=== PATIENT | male | born 1960 | race Caucasian/White ===

== ENCOUNTER 2019-08-25 18:35 | Emergency (ER) | payer MEDICARE, SELFPAY ==
[2019-08-25 18:37] VITALS: BP 103/69; PULSE 97; RESP 15; TEMP 36.4; O2SAT 96; BMI 28.1
--- NOTE | 2019-08-25 18:46 | XRR_ITS ---
PROCEDURE INFORMATION: Exam: XR Chest, 1 View Exam date and time: 08/25/2019 7:29 PM Age: 58 years old Clinical indication: Right-sided chest pain; Additional info: Cp TECHNIQUE: Imaging protocol: XR of the chest Views: 1 view. COMPARISON: No relevant prior studies available. FINDINGS: Lungs: Unremarkable. No consolidation. Pleural space: Right pleural fluid collection. Heart/Mediastinum: Unremarkable. No cardiomegaly. Bones/joints: Postoperative changes over the cervical spine. XR/XR chest 1V portable [id number] IMPRESSION: Right pleural fluid collection.
--- NOTE | 2019-08-25 18:46 | ECG_ITS ---
Measurements Intervals [place] Rate: 83 P: 41 CA: 132 QRS: 55 QRSD: 86 T: 65 QT: 321 QTc: 379 SINUS RHYTHM WITH SINUS ARRHYTHMIA No previous ECG available for comparison Electronically Signed On 08-26-2019 20:56:10 CDT by Sarai Paz M.D. [email or web address]
--- NOTE | 2019-08-25 18:46 | PC.NURSE ---
EKG done at 1844 and shown to ER doctor
[2019-08-25 19:09] LABS: Basophils # 0.1 10^3/uL (0.0-0.1); Basophils % 0.7 %; Eosinophils % 10.4 %; Hematocrit 50.6 % (42.0-52.0); Hemoglobin 16.3 g/dL (11.7-16.6); Lymphocytes # 2.3 10^3/uL (0.8-4.8); Lymphocytes % 24.8 %; Mean Corpuscular HGB Conc 32.2 g/dL (30.0-36.0); Mean Corpuscular Volume 96.2 fL (80-94); Mean Platelet Volume 8.5 fL (7.4-10.4); Monocytes # 0.8 10^3/uL (0.2-0.9); Monocytes % 8.2 %; Neutrophils # 5.1 10^3/uL (1.8-7.7); Neutrophils % 55.4 %; Nucleated Red Blood Cells % 0 %; Platelet Count 355 10^3/cmm (130-400); Red Blood Count 5.26 10^6/uL (4.1-5.3); Red Cell Distribution Width 12.6 % (12.1-15.1); White Blood Count 9.2 10^3/uL (4.0-10.0)
[2019-08-25 19:22] LABS: Partial Thromboplastin Time 27.7 SECONDS (23.9-36.7)
[2019-08-25 19:28] LABS: Alanine Aminotransferase 21 U/L (0-41); Albumin Level 3.4 g/dL (3.5-5.2); Alkaline Phosphatase 114 IU/L (40-130); Anion Gap 15.4 (5-19); Blood Urea Nitrogen 13 mg/dL (6-20); Carbon Dioxide 27 mmol/L (22-29); Chloride 102 mmol/L (98-107); Creatine Phosphokinase 50 U/L (39-308); Creatinine Clr Calc Pharmacy 84.3719; Globulin 4.1 g/dL (1.3-4.6); Glomerular Filtration Rate 77.3 mL/min (90-130); Glucose 105 mg/dL (65-115); Osmolality Calculated 287 mOsm/kg (285-295); Potassium 4.4 mmol/L (3.5-5.1); Sodium 140 mmol/L (136-145); Total Bilirubin 0.2 mg/dL (0.15-1.2); Total Protein 7.5 g/dL (6.6-8.7)
[2019-08-25 19:29] LABS: Troponin(5th) Baseline 7 ng/L (0-15)
[2019-08-25 19:35] LABS: Aspartate Amino Transferase 20 U/L (0-40)
[2019-08-25 19:47] VITALS: BP 142/78; PULSE 88; RESP 18; O2SAT 97
--- NOTE | 2019-08-26 03:12 | W.ED.CHESTPA ---
HPI - Chest Pain General: Chief Complaint: Chest Pain Stated Complaint: CHEST PAIN Time Seen by Provider: 08/25/19 18:39 History of Present Illness: HPI narrative: 58-year-old male arrives by ambulance. He complained of chest pain at home that was worse today. He has been having pain essentially for the last 3 days or so. The pain started 3 days ago when he was working on something at home. He short of breath with the pain. He states he has been coughing. No swelling no history of heart disease. He does have a history of a pneumothorax after traumatic injury a year ago or so. MD complaint: chest pain Onset (ago): day(s) (3) Timing of current episode: constant Prior episodes: Yes Onset: during rest Pain location: substernal Pain radiation: none Severity: moderate Quality: tightness and aching Relieving factors: nitroglycerin Associated symptoms: Reports dyspnea; Deny fever(s), leg edema, nausea, palpitations or vomiting Treatment prior to arrival: aspirin and nitroglycerin Review of Systems Const: Denies: fever(s) Eyes: Denies: change in vision or blurry vision ENMT: Denies: swelling of lips/tongue, epistaxis, post nasal drip or sinus pain Card: Reports: chest pain and dyspnea on exertion; Denies: palpitations, irregular heart rhythm, edema, swelling of feet/ankles or orthopnea Resp: Reports: dyspnea GI: Denies: nausea or vomiting : Denies: difficulty urinating or dysuria Musc: Denies: neck pain or back pain Skin/Breast: Denies: rash, pruritus or erythema Neuro: Reports: dizziness; Denies: headache(s) or vertigo Psych: Reports: anxiety; Denies: visual hallucinations PFSH ED PFSH: Social History Smoking and tobacco status: smoker, details unknown Physical Exam Const: GENERAL APPEARANCE: well developed ORIENTATION/CONSCIOUSNESS: Yes oriented to person, Yes oriented to place and Yes oriented to time HENMT: COMMON NORMALS: normocephalic, external ears normal and Normal external nose present HEAD & SCALP: normocephalic FACE & SINUS: normal facial exam NOSE: Normal external nose present and No nasal discharge present EXTERNAL EAR: Yes external ears normal MOUTH: tongue normal Eye: COMMON NORMALS: Equal, round and reactive pupils present, EOMs intact bilaterally and conjunctivae normal EYELID: eyelids normal CONJUNCTIVA: Yes conjunctivae normal PUPIL: Yes Equal, round and reactive pupils present Neck/C-Spine: GENERAL: No tracheal deviation Chest: COMMONS NORMALS: normal inspection of the chest CHEST: No tenderness Resp: COMMON NORMALS: clear to auscultation bilaterally EFFORT & INSPECTION: No tachypneic, No respiratory distress, No retractions, No uses accessory muscles and No tracheal deviation AUSCULTATION: clear to auscultation bilaterally, no rhonchi, no wheezes and lung sounds not diminished Cardio: COMMON NORMALS: regular rate and regular rhythm RATE: regular rate RHYTHM: regular rhythm HEART SOUNDS: no murmurs PERIPHERAL PULSES: radial pulses present GI: INSPECTION: No abdominal distension AUSCULTATION: No Hyperactive bowel sounds present and No Hypoactive bowel sounds present PALPATION: No Guarding due to palpation present (GI) and No Rigid due to palpation PERCUSSION: no dullness to percussion and no tympanic to percussion Neuro: SENSORIUM/ORIENTATION: Yes oriented to person, Yes oriented to place and Yes oriented to time Psych: COMMON NORMALS: mental status grossly normal Skin: COMMON NORMALS: no rashes or lesions noted GENERAL SKIN EXAM: no rashes or lesions noted Course Vital Signs: Vital signs: Vital Signs Temperature 97.5 F L 08/25/19 18:37 Pulse Rate 88 08/25/19 19:47 Respiratory Rate 18 08/25/19 19:47 Blood Pressure 142/78 08/25/19 19:47 Pulse Oximetry 97 08/25/19 19:47 MDM - Chest Pain MDM Narrative: Medical decision making narrative: 58-year-old male with no prior history of coronary disease. Chest pain was relieved by nitroglycerin. His blood pressure sank upon getting the nitroglycerin. He was initially hypertensive. His EKG is normal with no acute ST change. His first troponin is 9. His chest x-ray showed a pleural effusion on the right, unknown if this is chronic following his lung injury that was a right-sided injury within the last year. The patient during his ER stay became very anxious, and worried about his girlfriend because he could not get a hold of her. He stated that he was leaving. We try to convince him to stay given the risks of his presenting symptoms, but he refused. He signed an AMA form. Lab Data: Labs: Lab Results [id number] 08/25/19 Range/Units 19:00 19:00 19:00 WBC 9.2 (4.0-10.0) 10^3/ uL RBC 5.26 (4.1-5.3) 10^6/u L Hgb 16.3 (11.7-16.6) g/dL Hct 50.6 (42.0-52.0) % MCV 96.2 H (80-94) fL MCH 31.0 (28.0-34.0) pg MCHC 32.2 (30.0-36.0) g/dL RDW 12.6 (12.1-15.1) % Plt Count 355 (130-400) 10^3/c mm MPV 8.5 (7.4-10.4) fL Neut % (Auto) 55.4 % Lymph % (Auto) 24.8 % Martin % (Auto) 8.2 % Eos % (Auto) 10.4 % Baso % (Auto) 0.7 % Neut # (Auto) 5.1 (1.8-7.7) 10^3/u L Lymph # (Auto) 2.3 (0.8-4.8) 10^3/u L Martin # (Auto) 0.8 (0.2-0.9) 10^3/u L Eos # (Auto) 1.0 H (0.0-0.8) 10^3/u L Baso # (Auto) 0.1 (0.0-0.1) 10^3/u L Nucleated RBC % (a uto) 0 % Nucleated RBCs # 0.0 /100WBC PT 12.40 (10.5-13.3) SECO NDS INR 0.90 (0.8-1.2) APTT 27.7 (23.9-36.7) SECO NDS Sodium 140 (136-145) mmol/L Potassium 4.4 (3.5-5.1) mmol/L Chloride 102 (98-107) mmol/L Carbon Dioxide 27 (22-29) mmol/L Anion Gap 15.4 (5-19) BUN 13 (6-20) mg/dL Creatinine 1.0 (0.7-1.2) mg/dL GFR Calculation 77.3 L (90-130) mL/min Glucose 105 (65-115) mg/dL Calculated Osmolal ity 287 (285-295) mOsm/k g Calcium 9.0 (8.5-10.5) mg/dL Total Bilirubin 0.2 (0.15-1.2) mg/dL AST 20 (0-40) U/L ALT 21 (0-41) U/L Alkaline Phosphata se 114 (40-130) IU/L Creatine Kinase 50 (39-308) U/L Troponin T Baselin e (0-15) ng/L Total Protein 7.5 (6.6-8.7) g/dL Albumin 3.4 L (3.5-5.2) g/dL Globulin 4.1 (1.3-4.6) g/dL 08/25/19 Range/Units 19:00 WBC (4.0-10.0) 10^3/ uL RBC (4.1-5.3) 10^6/u L Hgb (11.7-16.6) g/dL Hct (42.0-52.0) % MCV (80-94) fL MCH (28.0-34.0) pg MCHC (30.0-36.0) g/dL RDW (12.1-15.1) % Plt Count (130-400) 10^3/c mm MPV (7.4-10.4) fL Neut % (Auto) % Lymph % (Auto) % Martin % (Auto) % Eos % (Auto) % Baso % (Auto) % Neut # (Auto) (1.8-7.7) 10^3/u L Lymph # (Auto) (0.8-4.8) 10^3/u L Martin # (Auto) (0.2-0.9) 10^3/u L Eos # (Auto) (0.0-0.8) 10^3/u L Baso # (Auto) (0.0-0.1) 10^3/u L Nucleated RBC % (a uto) % Nucleated RBCs # /100WBC PT (10.5-13.3) SECO NDS INR (0.8-1.2) APTT (23.9-36.7) SECO NDS Sodium (136-145) mmol/L Potassium (3.5-5.1) mmol/L Chloride (98-107) mmol/L Carbon Dioxide (22-29) mmol/L Anion Gap (5-19) BUN (6-20) mg/dL Creatinine (0.7-1.2) mg/dL GFR Calculation (90-130) mL/min Glucose (65-115) mg/dL Calculated Osmolal ity (285-295) mOsm/k g Calcium (8.5-10.5) mg/dL Total Bilirubin (0.15-1.2) mg/dL AST (0-40) U/L ALT (0-41) U/L Alkaline Phosphata se (40-130) IU/L Creatine Kinase (39-308) U/L Troponin T Baselin e 7 (0-15) ng/L Total Protein (6.6-8.7) g/dL Albumin (3.5-5.2) g/dL Globulin (1.3-4.6) g/dL Discharge Plan Discharge Patient Disposition: Left Against Medical Advice Clinical Impression: Chest pain Qualifiers: Chest pain type: unspecified Qualified Code(s): R07.9 - Chest pain, unspecified Condition: Stable Prescriptions: No Action metaxalone [Skelaxin] 800 mg tablet 800 mg PO TID PRNRF: 0 tramadol 50 mg tablet 50 mg PO Q6H PRNRF: 0 Discharge Date/Time: 08/25/19 19:49 Coding Level of Care Code ED [place] for [facility] Fwd Exam Comprehensive
== END 2019-08-25 19:49 | disposition left against medical advice (07) ==
LOC: ER 18:57
PROVIDERS: Emergency Provider Emergency Medicine
DX: R07.9 Chest pain, unspecified (principal); Z53.21 Procedure and treatment not carried out due to patient leaving prior to being seen by health care provider; F17.210 Nicotine dependence, cigarettes, uncomplicated
CPT/HCPCS: 12345; 71045; 80053; 82550; 84484; 85025; 85610; 85730; 93005; 99283; 99284

== ENCOUNTER 2019-09-14 16:53 | Emergency (ER) | payer MEDICARE, SELFPAY ==
[2019-09-14 17:07] VITALS: BP 120/71; PULSE 75; RESP 20; TEMP 37.4; O2SAT 95; BMI 28.1
--- NOTE | 2019-09-14 17:12 | CTR_ITS ---
PROCEDURE INFORMATION: Exam: CT Abdomen And Pelvis With Contrast Exam date and time: 09/14/2019 5:43 PM Age: 58 years old Clinical indication: Abdominal pain; Localized; Left lower quadrant (llq); Prior surgery; Surgery date: 6+ months; Surgery type: Back, hernia; Patient HX: C/O sudden onset llq/testicular pain; Additional info: Abd pain TECHNIQUE: Imaging protocol: Computed tomography of the abdomen and pelvis with intravenous contrast. Radiation optimization: All CT scans at this facility use at least one of these dose optimization techniques: automated exposure control; mA and/or kV adjustment per patient size (includes targeted exams where dose is matched to clinical indication); or iterative reconstruction. Contrast material: OMNI 300; Contrast volume: 95 ml; Contrast route: INTRAVENOUS (IV); COMPARISON: CT abdomen pelvis w con* [id number] 09/29/2018 1:21 PM RADIATION DOSE METRICS: Total DLP (mGy-cm): 749.61 FINDINGS: Lungs: Mild bibasilar atelectasis and/or infiltrate and/or scarring. Pleural space: Small right pleural fluid collection. Liver: Normal. No mass. Gallbladder and bile ducts: Normal. No calcified stones. No ductal dilation. Pancreas: Normal. No ductal dilation. Spleen: Normal. No splenomegaly. Adrenals: Normal. No mass. Kidneys and ureters: Normal-variant horseshoe kidney. One or more nonobstructing right renal calyceal stones. Mild inflammation surrounding the left kidney secondary to left UPJ stone. 3 mm left UPJ stone with mild left hydronephrosis. Stomach and bowel: Moderate diverticulosis. Appendix: Normal appendix. Intraperitoneal space: Unremarkable. No free air. No significant fluid collection. Vasculature: Unremarkable. No abdominal aortic aneurysm. Lymph nodes: Unremarkable. No enlarged lymph nodes. Bladder: Unremarkable as visualized. Reproductive: Possible bilateral vasectomy in the past with surgical clips. Bones/joints: Unremarkable. No acute fracture. Soft tissues: Unremarkable. CT/CT abdomen pelvis w con* [id number] IMPRESSION: 1. Small right pleural fluid collection. 2. Normal-variant horseshoe kidney. 3. Mild inflammation surrounding the left kidney secondary to left UPJ stone. 3 mm left UPJ stone with mild left hydronephrosis. Radiation Dose CTDIVOL = (mGy): DLP = 749.61 (mGy-cm)
--- NOTE | 2019-09-14 17:13 | W.ED.ABDPA2 ---
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 He has had a left inguinal hernia repair in the past he states his left testicle feels swollen and inflamed he has a fullness and pain along the inguinal canal he feels very nauseous but is not actually had any vomiting. Patient wants to remain very still he does not want to move at all during the course of the history exam he says any movement worsens it. He denies fevers or chills denies dysuria urgency or frequency he states up until now his bowels and bladder have been normal recently has not had any respiratory illnesses lately recently has not been around anyone who is known to be covid19 positive. MD elicited complaint: abdominal pain Onset (ago): hour(s) Pain Consistency: constant Location: Groin (Left) and Other (Left testicle) Severity: severe Quality: cramping Radiation: other (Radiates from the testicle into the groin) Exacerbating factors: movement Relieving factors: rest Context: other (Previous left inguinal hernia repair) Associated Symptoms: Denies bloating, chills, coffee ground emesis, constipation, diarrhea, dysuria, fever(s), hematochezia, hematemesis, melena, nausea and vomiting Review of Systems Const: Denies: fever(s), chills, body aches, change in appetite, fatigue or malaise ENMT: Denies: throat pain, ear or mastoid pain, nasal discharge or nasal congestion Card: Denies: chest pain, edema, dyspnea on exertion or orthopnea Resp: Denies: dyspnea, productive cough or non-productive cough GI: Denies: abdominal pain, nausea, vomiting, hematemesis, coffee ground emesis, diarrhea, constipation, bloating, hematochezia or melena : Denies: flank pain, dysuria, urinary frequency or urinary urgency Skin/Breast: Denies: rash or pruritus PFSH ED PFSH: Medical History (Updated 09/14/19 @ 22:34 by José Luis Simon DO) Cervical radiculopathy No significant past medical history Surgical History (Updated 09/14/19 @ 17:16 by Artem Robles DO) History of ankle surgery History of back surgery History of knee surgery History of neck surgery Social History Smoking and tobacco status: smoker, details unknown Physical Exam Const: COMMON NORMALS: no acute distress GENERAL APPEARANCE: cooperative and comfortable ORIENTATION/CONSCIOUSNESS: Yes awake, Yes oriented to person, Yes oriented to place and Yes oriented to time Eye: COMMON NORMALS: Equal, round and reactive pupils present, EOMs intact bilaterally, conjunctivae normal and no scleral icterus CONJUNCTIVA: Yes conjunctivae normal PUPIL: Yes Equal, round and reactive pupils present Neck/C-Spine: COMMON NORMALS: full ROM, no lymphadenopathy and supple Lymph: LYMPHATIC: no lymphadenopathy noted and no lymphedema noted Resp: COMMON NORMALS: normal respiratory effort, No retractions, No use of accessory muscles and clear to auscultation bilaterally AUSCULTATION: clear to auscultation bilaterally Cardio: COMMON NORMALS: regular rhythm and No murmurs present (Cardio) RATE: tachycardic RHYTHM: regular rhythm GI: PALPATION: Yes Tenderness to palpation present (GI) (Diffuse abdominal tenderness) OTHER: Severe tenderness along the left inguinal canal : TESTES: No testicular swelling and Yes testicular tenderness Testicular tenderness laterality: left Extremity: COMMON NORMALS: normal to inspection, capillary refill normal, no clubbing, cyanosis or edema, no calf tenderness and no pedal edema Neuro: SENSORIUM/ORIENTATION: Yes oriented to person, Yes oriented to place and Yes oriented to time Skin: COMMON NORMALS: no rashes or lesions noted GENERAL SKIN EXAM: no rashes or lesions noted Course Vital Signs: Vital signs: Vital Signs Temperature 99.4 F 09/14/19 17:07 Pulse Rate 80 09/14/19 23:04 Respiratory Rate 17 09/14/19 23:04 Blood Pressure 130/77 09/14/19 23:04 Pulse Oximetry 99 09/14/19 23:04 MDM - Abdominal Pain MDM Narrative: Medical decision making narrative: Care turned over to Dr. Simon at change of shift. Does see his notes for final diagnosis and disposition. CT pending at time of change of shift Lab Data: Labs: Lab Results 09/14/19 09/14/19 09/14/19 Range/Units 17:31 17:31 17:31 WBC 11.2 H (4.0-10.0) 10^3/ uL RBC 4.86 (4.1-5.3) 10^6/u L Hgb 14.9 (11.7-16.6) g/dL Hct 44.9 (42.0-52.0) % MCV 92.4 (80-94) fL MCH 30.7 (28.0-34.0) pg MCHC 33.2 (30.0-36.0) g/dL RDW 12.2 (12.1-15.1) % Plt Count 321 (130-400) 10^3/c mm MPV 8.7 (7.4-10.4) fL Neut % (Auto) 80.2 % Lymph % (Auto) 10.9 % Newberry % (Auto) 5.1 % Eos % (Auto) 3.1 % Baso % (Auto) 0.4 % Neut # (Auto) 9.0 H (1.8-7.7) 10^3/u L Lymph # (Auto) 1.2 (0.8-4.8) 10^3/u L Newberry # (Auto) 0.6 (0.2-0.9) 10^3/u L Eos # (Auto) 0.4 (0.0-0.8) 10^3/u L Baso # (Auto) 0.1 (0.0-0.1) 10^3/u L Nucleated RBC % (a uto) 0 % Nucleated RBCs # 0.0 /100WBC Sodium 138 (136-145) mmol/L Potassium 3.8 (3.5-5.1) mmol/L Chloride 103 (98-107) mmol/L Carbon Dioxide 22 (22-29) mmol/L Anion Gap 16.8 (5-19) BUN 18 (6-20) mg/dL Creatinine 1.3 H (0.7-1.2) mg/dL GFR Calculation 57.1 L (90-130) mL/min Glucose 129 H (65-115) mg/dL Calculated Osmolal ity 284 L (285-295) mOsm/k g Lactate 1.3 (0.5-2.2) mmol/L Calcium 8.7 (8.5-10.5) mg/dL Total Bilirubin 0.4 (0.15-1.2) mg/dL AST 22 (0-40) U/L ALT 18 (0-41) U/L Alkaline Phosphata se 103 (40-130) IU/L Total Protein 7.8 (6.6-8.7) g/dL Albumin 3.9 (3.5-5.2) g/dL Globulin 3.9 (1.3-4.6) g/dL Lipase 22 (13-60) U/L Urine Color (Yellow) Urine Appearance (CLEAR) Urine pH (5-7) Ur Specific Gravit y (1.005-1.030) Urine Protein (Negative) Urine Glucose (UA) (Normal) Urine Ketones (Negative) Urine Blood (Negative) Urine Nitrate (Negative) Urine Bilirubin (NEGATIVE) Prot Sulfosalicyli c Acd (Negative) Urine Urobilinogen (Negative) mg/dL Ur Leukocyte Sujey ase (Negative) Urine RBC (0-2) /hpf Urine WBC (0-5) /hpf Ur Squamous Epith Cells (0-5) Amorphous Sediment Urine Bacteria (NONE) Urine Opiates Scre en (Negative) ng/mL Ur Barbiturates Sc reen (Negative) ng/mL Ur Phencyclidine S crn (Negative) ng/mL Ur Amphetamines Sc reen (Negative) ng/mL U Benzodiazepines Scrn (Negative) ng/mL Urine Cocaine Scre en (Negative) ng/mL U Marijuana (THC) Screen (Negative) ng/mL 09/14/19 09/14/19 Range/Units 20:57 20:57 WBC (4.0-10.0) 10^3/ uL RBC (4.1-5.3) 10^6/u L Hgb (11.7-16.6) g/dL Hct (42.0-52.0) % MCV (80-94) fL MCH (28.0-34.0) pg MCHC (30.0-36.0) g/dL RDW (12.1-15.1) % Plt Count (130-400) 10^3/c mm MPV (7.4-10.4) fL Neut % (Auto) % Lymph % (Auto) % Newberry % (Auto) % Eos % (Auto) % Baso % (Auto) % Neut # (Auto) (1.8-7.7) 10^3/u L Lymph # (Auto) (0.8-4.8) 10^3/u L Newberry # (Auto) (0.2-0.9) 10^3/u L Eos # (Auto) (0.0-0.8) 10^3/u L Baso # (Auto) (0.0-0.1) 10^3/u L Nucleated RBC % (a uto) % Nucleated RBCs # /100WBC Sodium (136-145) mmol/L Potassium (3.5-5.1) mmol/L Chloride (98-107) mmol/L Carbon Dioxide (22-29) mmol/L Anion Gap (5-19) BUN (6-20) mg/dL Creatinine (0.7-1.2) mg/dL GFR Calculation (90-130) mL/min Glucose (65-115) mg/dL Calculated Osmolal ity (285-295) mOsm/k g Lactate (0.5-2.2) mmol/L Calcium (8.5-10.5) mg/dL Total Bilirubin (0.15-1.2) mg/dL AST (0-40) U/L ALT (0-41) U/L Alkaline Phosphata se (40-130) IU/L Total Protein (6.6-8.7) g/dL Albumin (3.5-5.2) g/dL Globulin (1.3-4.6) g/dL Lipase (13-60) U/L Urine Color Yellow (Yellow) Urine Appearance Hazy A (CLEAR) Urine pH 6.5 (5-7) Ur Specific Gravit y 1.005 (1.005-1.030) Urine Protein Neg (Negative) Urine Glucose (UA) Norm (Normal) Urine Ketones Negative (Negative) Urine Blood 3+ H (Negative) Urine Nitrate Negative (Negative) Urine Bilirubin Neg (NEGATIVE) Prot Sulfosalicyli c Acd Negative (Negative) Urine Urobilinogen Norm (Negative) mg/dL Ur Leukocyte Sujey ase Negative (Negative) Urine RBC 80-100 H (0-2) /hpf Urine WBC None (0-5) /hpf Ur Squamous Epith Cells None (0-5) Amorphous Sediment Not Reportable Urine Bacteria Trace (NONE) Urine Opiates Scre en Positive H (Negative) ng/mL Ur Barbiturates Sc reen Negative (Negative) ng/mL Ur Phencyclidine S crn Negative (Negative) ng/mL Ur Amphetamines Sc reen Positive H (Negative) ng/mL U Benzodiazepines Scrn Negative (Negative) ng/mL Urine Cocaine Scre en Negative (Negative) ng/mL U Marijuana (THC) Screen Negative (Negative) ng/mL Discharge Plan Discharge Patient Disposition: Home, Self-Care Clinical Impression: Ureterolithiasis Condition: Stable Prescriptions: New Percocet 7.5-325 mg tablet 1 tab PO Q6H PRN (Reason: pain) Qty: 10 RF: 0 Zofran 4 mg tablet 4 mg PO Q6H PRN (Reason: nausea and vomiting) Qty: 10 RF: 0 No Action metaxalone [Skelaxin] 800 mg tablet 800 mg PO TID PRNRF: 0 tramadol 50 mg tablet 50 mg PO Q6H PRNRF: 0 Discharge Orders: Discharge Order (Routine); Ordered 09/14/19 Ordered By: José Luis Simon Referrals: Tyrone Navarrete MD [Physician] - 4-7 days Discharge Diet: Advance as tolerated Discharge Activity: Limit activity as instructed Patient Instructions: Kidney Stones (ED) Activity Restrictions/Additional Instructions: No strenuous activity. Drink plenty of water. Medication as directed for pain and nausea. Call the urology clinic Tuesday morning for a follow-up appointment. Return for fever greater than 100, vomiting liquids or medications, other concerning symptoms. Discharge Date/Time: 09/14/19 23:05 Coding Level of Care Code ED Hand Crown Pouncer for Chg Fwd Exam Comprehensive Documented by User: José Luis Simon DO 09/15/19 08:33 HPI - Abdominal Pain General: Chief Complaint: Abdominal Pain Stated Complaint: TESTICLE PAIN Time Seen by Provider: 09/14/19 17:03 [facility] ED PFSH: Medical History (Updated 09/14/19 @ 22:34 by José Luis Simon DO) Cervical radiculopathy No significant past medical history Surgical History (Updated 09/14/19 @ 17:16 by Artem Robles DO) History of ankle surgery History of back surgery History of knee surgery History of neck surgery Social History Smoking and tobacco status: smoker, details unknown Course Vital Signs: Vital signs: Vital Signs Temperature 99.4 F 09/14/19 17:07 Pulse Rate 80 09/14/19 23:04 Respiratory Rate 17 09/14/19 23:04 Blood Pressure 130/77 09/14/19 23:04 Pulse Oximetry 99 09/14/19 23:04 MDM - Abdominal Pain MDM Narrative: Medical decision making narrative: 58-year-old male with inguinal pain. His labs are essentially benign, only mild leukocytosis. Mild elevation in creatinine. He has a 3 mm UPJ with some hydronephrosis. No urinary tract infection. Interestingly, he is positive for amphetamines. This was drawn because he seems to be more sedate than I would expect following pain medication. He will be sent home with pain control antiemetics. Follow-up with urology. Lab Data: Labs: Lab Results 09/14/19 09/14/19 09/14/19 Range/Units 17:31 17:31 17:31 WBC 11.2 H (4.0-10.0) 10^3/ uL RBC 4.86 (4.1-5.3) 10^6/u L Hgb 14.9 (11.7-16.6) g/dL Hct 44.9 (42.0-52.0) % MCV 92.4 (80-94) fL MCH 30.7 (28.0-34.0) pg MCHC 33.2 (30.0-36.0) g/dL RDW 12.2 (12.1-15.1) % Plt Count 321 (130-400) 10^3/c mm MPV 8.7 (7.4-10.4) fL Neut % (Auto) 80.2 % Lymph % (Auto) 10.9 % Newberry % (Auto) 5.1 % Eos % (Auto) 3.1 % Baso % (Auto) 0.4 % Neut # (Auto) 9.0 H (1.8-7.7) 10^3/u L Lymph # (Auto) 1.2 (0.8-4.8) 10^3/u L Newberry # (Auto) 0.6 (0.2-0.9) 10^3/u L Eos # (Auto) 0.4 (0.0-0.8) 10^3/u L Baso # (Auto) 0.1 (0.0-0.1) 10^3/u L Nucleated RBC % (a uto) 0 % Nucleated RBCs # 0.0 /100WBC Sodium 138 (136-145) mmol/L Potassium 3.8 (3.5-5.1) mmol/L Chloride 103 (98-107) mmol/L Carbon Dioxide 22 (22-29) mmol/L Anion Gap 16.8 (5-19) BUN 18 (6-20) mg/dL Creatinine 1.3 H (0.7-1.2) mg/dL GFR Calculation 57.1 L (90-130) mL/min Glucose 129 H (65-115) mg/dL Calculated Osmolal ity 284 L (285-295) mOsm/k g Lactate 1.3 (0.5-2.2) mmol/L Calcium 8.7 (8.5-10.5) mg/dL Total Bilirubin 0.4 (0.15-1.2) mg/dL AST 22 (0-40) U/L ALT 18 (0-41) U/L Alkaline Phosphata se 103 (40-130) IU/L Total Protein 7.8 (6.6-8.7) g/dL Albumin 3.9 (3.5-5.2) g/dL Globulin 3.9 (1.3-4.6) g/dL Lipase 22 (13-60) U/L Urine Color (Yellow) Urine Appearance (CLEAR) Urine pH (5-7) Ur Specific Gravit y (1.005-1.030) Urine Protein (Negative) Urine Glucose (UA) (Normal) Urine Ketones (Negative) Urine Blood (Negative) Urine Nitrate (Negative) Urine Bilirubin (NEGATIVE) Prot Sulfosalicyli c Acd (Negative) Urine Urobilinogen (Negative) mg/dL Ur Leukocyte Sujey ase (Negative) Urine RBC (0-2) /hpf Urine WBC (0-5) /hpf Ur Squamous Epith Cells (0-5) Amorphous Sediment Urine Bacteria (NONE) Urine Opiates Scre en (Negative) ng/mL Ur Barbiturates Sc reen (Negative) ng/mL Ur Phencyclidine S crn (Negative) ng/mL Ur Amphetamines Sc reen (Negative) ng/mL U Benzodiazepines Scrn (Negative) ng/mL Urine Cocaine Scre en (Negative) ng/mL U Marijuana (THC) Screen (Negative) ng/mL 09/14/19 09/14/19 Range/Units 20:57 20:57 WBC (4.0-10.0) 10^3/ uL RBC (4.1-5.3) 10^6/u L Hgb (11.7-16.6) g/dL Hct (42.0-52.0) % MCV (80-94) fL MCH (28.0-34.0) pg MCHC (30.0-36.0) g/dL RDW (12.1-15.1) % Plt Count (130-400) 10^3/c mm MPV (7.4-10.4) fL Neut % (Auto) % Lymph % (Auto) % Newberry % (Auto) % Eos % (Auto) % Baso % (Auto) % Neut # (Auto) (1.8-7.7) 10^3/u L Lymph # (Auto) (0.8-4.8) 10^3/u L Newberry # (Auto) (0.2-0.9) 10^3/u L Eos # (Auto) (0.0-0.8) 10^3/u L Baso # (Auto) (0.0-0.1) 10^3/u L Nucleated RBC % (a uto) % Nucleated RBCs # /100WBC Sodium (136-145) mmol/L Potassium (3.5-5.1) mmol/L Chloride (98-107) mmol/L Carbon Dioxide (22-29) mmol/L Anion Gap (5-19) BUN (6-20) mg/dL Creatinine (0.7-1.2) mg/dL GFR Calculation (90-130) mL/min Glucose (65-115) mg/dL Calculated Osmolal ity (285-295) mOsm/k g Lactate (0.5-2.2) mmol/L Calcium (8.5-10.5) mg/dL Total Bilirubin (0.15-1.2) mg/dL AST (0-40) U/L ALT (0-41) U/L Alkaline Phosphata se (40-130) IU/L Total Protein (6.6-8.7) g/dL Albumin (3.5-5.2) g/dL Globulin (1.3-4.6) g/dL Lipase (13-60) U/L Urine Color Yellow (Yellow) Urine Appearance Hazy A (CLEAR) Urine pH 6.5 (5-7) Ur Specific Gravit y 1.005 (1.005-1.030) Urine Protein Neg (Negative) Urine Glucose (UA) Norm (Normal) Urine Ketones Negative (Negative) Urine Blood 3+ H (Negative) Urine Nitrate Negative (Negative) Urine Bilirubin Neg (NEGATIVE) Prot Sulfosalicyli c Acd Negative (Negative) Urine Urobilinogen Norm (Negative) mg/dL Ur Leukocyte Sujey ase Negative (Negative) Urine RBC 80-100 H (0-2) /hpf Urine WBC None (0-5) /hpf Ur Squamous Epith Cells None (0-5) Amorphous Sediment Not Reportable Urine Bacteria Trace (NONE) Urine Opiates Scre en Positive H (Negative) ng/mL Ur Barbiturates Sc reen Negative (Negative) ng/mL Ur Phencyclidine S crn Negative (Negative) ng/mL Ur Amphetamines Sc reen Positive H (Negative) ng/mL U Benzodiazepines Scrn Negative (Negative) ng/mL Urine Cocaine Scre en Negative (Negative) ng/mL U Marijuana (THC) Screen Negative (Negative) ng/mL Discharge Plan Discharge Patient Disposition: Home, Self-Care Clinical Impression: Ureterolithiasis Condition: Stable Prescriptions: New Percocet 7.5-325 mg tablet 1 tab PO Q6H PRN (Reason: pain) Qty: 10 RF: 0 Zofran 4 mg tablet 4 mg PO Q6H PRN (Reason: nausea and vomiting) Qty: 10 RF: 0 No Action metaxalone [Skelaxin] 800 mg tablet 800 mg PO TID PRNRF: 0 tramadol 50 mg tablet 50 mg PO Q6H PRNRF: 0 Discharge Orders: Discharge Order (Routine); Ordered 09/14/19 Ordered By: José Luis Simon Referrals: Tyrone Navarrete MD [Physician] - 4-7 days Discharge Diet: Advance as tolerated Discharge Activity: Limit activity as instructed Patient Instructions: Kidney Stones (ED) Activity Restrictions/Additional Instructions: No strenuous activity. Drink plenty of water. Medication as directed for pain and nausea. Call the urology clinic Tuesday morning for a follow-up appointment. Return for fever greater than 100, vomiting liquids or medications, other concerning symptoms. Discharge Date/Time: 09/14/19 23:05 Coding Level of Care Code ED Hand Crown Pouncer for Chg Fwd Exam Comprehensive
[2019-09-14] MEDS: morphine 4 mg/mL SDV 1 mL 8 MG IVP (17:23)
[2019-09-14] MEDS: LORazepam 2 mg/mL INJ 1 mL 1 MG IVP (17:23)
[2019-09-14] MEDS: sodium chloride 0.9% 1,000 ML 999 ML IV (17:24)
--- NOTE | 2019-09-14 17:25 | PC.NURSE ---
after medication administration pt became hypoxic at 79%. supplemental oxygen applied
[2019-09-14 17:34] VITALS: O2SAT 96
[2019-09-14 17:40] LABS: Basophils # 0.1 10^3/uL (0.0-0.1); Basophils % 0.4 %; Eosinophils # 0.4 10^3/uL (0.0-0.8); Eosinophils % 3.1 %; Hematocrit 44.9 % (42.0-52.0); Hemoglobin 14.9 g/dL (11.7-16.6); Lymphocytes # 1.2 10^3/uL (0.8-4.8); Lymphocytes % 10.9 %; Mean Corpuscular HGB Conc 33.2 g/dL (30.0-36.0); Mean Corpuscular Hemoglobin 30.7 pg (28.0-34.0); Mean Corpuscular Volume 92.4 fL (80-94); Mean Platelet Volume 8.7 fL (7.4-10.4); Monocytes # 0.6 10^3/uL (0.2-0.9); Monocytes % 5.1 %; Neutrophils % 80.2 %; Nucleated Red Blood Cells % 0 %; Platelet Count 321 10^3/cmm (130-400); Red Blood Count 4.86 10^6/uL (4.1-5.3); Red Cell Distribution Width 12.2 % (12.1-15.1); White Blood Count 11.2 10^3/uL (4.0-10.0)
[2019-09-14 17:50] LABS: Lactate (Lactic Acid level) 1.3 mmol/L (0.5-2.2)
[2019-09-14 17:51] LABS: Alanine Aminotransferase 18 U/L (0-41); Albumin Level 3.9 g/dL (3.5-5.2); Alkaline Phosphatase 103 IU/L (40-130); Anion Gap 16.8 (5-19); Aspartate Amino Transferase 22 U/L (0-40); Blood Urea Nitrogen 18 mg/dL (6-20); Calcium 8.7 mg/dL (8.5-10.5); Carbon Dioxide 22 mmol/L (22-29); Chloride 103 mmol/L (98-107); Globulin 3.9 g/dL (1.3-4.6); Glomerular Filtration Rate 57.1 mL/min (90-130); Glucose 129 mg/dL (65-115); Lipase 22 U/L (13-60); Osmolality Calculated 284 mOsm/kg (285-295); Potassium 3.8 mmol/L (3.5-5.1); Sodium 138 mmol/L (136-145); Total Bilirubin 0.4 mg/dL (0.15-1.2); Total Protein 7.8 g/dL (6.6-8.7)
--- NOTE | 2019-09-14 18:53 | PC.NURSE ---
pt back from CT by stretcher with tech
[2019-09-14 18:55] VITALS: BP 137/96; PULSE 83; O2SAT 99
[2019-09-14] MEDS: iohexol 300 mg/mL 100 mL Btl IV (18:55)
[2019-09-14 21:14] VITALS: BP 108/71; PULSE 79; RESP 20; O2SAT 99
[2019-09-14 22:03] LABS: Amphetamines Screen Urine Positive (Negative); Barbiturates Screen Urine Negative (Negative); Benzodiazepines Screen Urine Negative (Negative); Cocaine Screen Urine Negative (Negative); Opiate Screen Urine Positive (Negative); PCP Screen Urine Negative (Negative); THC Screen Urine Negative (Negative)
[2019-09-14 22:19] LABS: Add Urine Microscopic? YES; Bilirubin Urine Neg (NEGATIVE); Blood Urine 3+ (Negative); Glucose Urine UA Norm (Normal); Ketones Urine Negative (Negative); Leukocyte Esterase Urine Negative (Negative); Nitrate Urine Negative (Negative); Protein Urine Neg (Negative); Specific Gravity, Urine 1.005 (1.005-1.030); Sulfosalicylic Acid Urine Negative (Negative); Urine Appearance Hazy (CLEAR); Urine Color Yellow (Yellow); Urobilinogen Urine Norm (Negative); pH Urine 6.5 (5-7)
[2019-09-14 22:26] LABS: Add Urine Culture? Yes; Bacteria Urine TRACE; RBC Urine 80-100 /hpf (0-2)
[2019-09-14 23:03] VITALS: RESP 16
[2019-09-14] MEDS: oxyCODONE-APAP 5-325 mg Tablet 2 TAB PO (23:03)
[2019-09-14 23:04] VITALS: BP 130/77; PULSE 80; RESP 17; O2SAT 99
--- NOTE | 2019-09-17 14:13 | DCPLANNER ---
manager employment had message to schedule a follow up appointment for patient with Dr. Navarrete. manager employment called the office of Dr. Navarrete, spoke with Eliot, gave clinic patients appointment information. manager employment was told that patients information would be printed and reviewed. Clinic will call patient with appointment information.
--- NOTE | 2019-09-18 09:09 | DCPLANNER ---
Addendum entered by Shawanda Sagastume 09/20/19 11:01: Melisa from Dr. Bell office called family caseworker and informed family caseworker that clinic has tried to reach patient several different times and is unable to reach patient at this time, and no appointment has been scheduled for patient due to not confirming appointment information. senior clinical study manager was unable to reach patient at this time. Original Note: Patient has a follow up appointment scheduled for Wednesday, September 18, 2019 at 3:[address] Navarrete. Clinic will call patient with appointment information.
== END 2019-09-14 23:05 | disposition home or self-care (01) ==
PROVIDERS: Family Medicine; Emergency Provider Emergency Medicine
DX: N20.1 Calculus of ureter (principal)
CPT/HCPCS: 12345; 36415; 74177; 80053; 80306; 81001; 81003; 83605; 83690; 85025; 87086; 96361; 96374; 96375; 99283; 99284; J2060; J2270; J7030; Q9967

== ENCOUNTER → 2022-09-09 09:28 | Outpatient (BNVA) | payer MEDICARE, SELFPAY | PROVIDERS: PCP Family Medicine; Visit Provider Family Medicine | DX: M19.032 Primary osteoarthritis, left wrist (principal) | CPT/HCPCS: 73110 ==